=== PATIENT | female | born 1980 | race African-American/Black ===

== ENCOUNTER 2017-04-22 08:46 | Emergency (ER) | payer BC ==
[~2017-04-22] VITALS: Ht 170.2 cm; Wt 52.2 kg
[2017-04-22 08:58] VITALS: BP 157/74
[2017-04-22] MEDS ORDERED: INHA1SPA94 MC (09:21)
[2017-04-22] MEDS ORDERED: PROAIR HFA8.5 GM INH (09:21)
[2017-04-22] MEDS ORDERED: AMOX1TAB61 PO (09:21)
--- NOTE | 2017-04-22 09:21 | PHYS DOC ---
Past Medical History Past Medical History: No Pertinent History Past Surgical History: No Surgical History Alcohol Use: None Drug Use: None Adult General Chief Complaint Chief Complaint: COUGH HPI HPI Patient is a 36 year old female presents to the emergency department with a history of cough and congestion for the last 4 days. 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 Patient states on Saturday she had a fever. She states her cough has been productive yellow to green and back to yellow. Patient states she has chest discomfort with coughing and deep breathing denies SOA. Review of Systems Review of Systems Constitutional: hx of fever Eyes: Denies change in visual acuity, redness, or eye pain [] HENT: Denies nasal congestion or sore throat [] Respiratory: cough denies shortness of breath [] Cardiovascular: No additional information not addressed in HPI [] GI: Denies abdominal pain, nausea, vomiting, bloody stools or diarrhea [] : Denies dysuria or hematuria [] Musculoskeletal: Denies back pain or joint pain [] Integument: Denies rash or skin lesions [] Neurologic: Denies headache, focal weakness or sensory changes [] Endocrine: Denies polyuria or polydipsia [] Allergies Allergies Allergies Coded Allergies Type Severity Reaction Last Updated Verified No Known Drug Allergies 09/01/15 No Physical Exam Physical Exam Constitutional: Well developed, well nourished, no acute distress, non-toxic appearance. [] HENT: Normocephalic, atraumatic, bilateral external ears normal, oropharynx moist, no oral exudates, nose normal. Bilateral TM normal, throat without erythema, or exudate. Eyes: PERRLA, EOMI, conjunctiva normal, no discharge. [] Neck: Normal range of motion, no tenderness, supple, no stridor. [] Cardiovascular:Heart rate regular rhythm, no murmur [] Lungs & Thorax: Bilateral breath sounds clear to auscultation [] Skin: Warm, dry, no erythema, no rash. [] Extremities: No tenderness, no cyanosis, no clubbing, ROM intact, no edema. [] Neurologic: Alert and oriented X 3, normal motor function, normal sensory function, no focal deficits noted. [] Psychologic: Affect normal, judgement normal, mood normal. [] Current Patient Data Vital Signs Vital Signs Date Time Temp Pulse Resp B/P (MAP) Pulse Ox O2 Delivery O2 Flow Rate FiO2 10/23/17 08:58 98.1 105 22 98 Room Air 98.1 EKG EKG [] Radiology/Procedures Radiology/Procedures [] Course & Med Decision Making Course & Med Decision Making Pertinent Labs and Imaging studies reviewed. (See chart for details) Patient was recommended to use Sudafed and Mucinex DM she will be provided with proair, and augmentin prescription. She will be recommended to use Tylenol or Ibuprofen for fever, chills or generalized body aches and discomfort. Recommended plenty of fluids. Signs and symptoms to return to the emergency department has been provided. All questions and concerns have been answered at the patients bedside. Patient agrees with discharge instructions, treatment regimen and followup recommendations. [] Dragon Disclaimer Dragon Disclaimer This electronic medical record was generated, in whole or in part, using a voice recognition dictation system. Departure Departure Impression: Primary Impression: Bronchitis Additional Impression: Sinusitis Disposition: HOME, SELF-CARE Condition: STABLE Referrals: NO PCP (PCP) Patient Instructions: Acute Bronchitis, [id number], Sinusitis, [id number] Additional Instructions: Activity as tolerated Medication as prescribed Tylenol or Ibuprofen for fever, chills, or generalized body aches and discomfort Sudafed and Mucinex DM as directed by manufacture over the counter Drink plenty of fluids such as water, propel or gatorade Followup with primary care provider in 7-10 days Return to emergency department as needed for signs and symptoms that become worse. Scripts Inhaler, Assist Devices (Compact Space Chamber) 1 Each Spacer EACH MC, #1 Prov: SUSAN AREVALO APRN 04/22/17 Albuterol Sulfate (PROAIR HFA INHALER) 8.5 Gm Hfa.aer.ad 1 PUFF INH PRN Q6HRS Y for SHORTNESS OF BREATH, #1 INHALER 0 Refills Prov: SUSAN AREVALO APRN 04/22/17 Amoxicillin/Potassium Clav (AUGMENTIN 875-125 TABLET) 1 Each Tablet 1 TAB PO BID, #20 TAB Prov: SUSAN AREVALO APRN 04/22/17 Problem Qualifiers Additional Impression: Sinusitis Sinusitis location: unspecified location Chronicity: unspecified Qualified Codes: J32.9 - Chronic sinusitis, unspecified SUSAN AREVALO APRN Apr 22, 2017 09:21
== END 2017-04-22 09:28 | disposition home or self-care (01) ==
LOC: ER 08:46
DX: J40 Bronchitis, not specified as acute or chronic (principal); J32.9 Chronic sinusitis, unspecified
CPT/HCPCS: 99283